=== PATIENT | female | born 1960 | race Caucasian/White ===

== ENCOUNTER → 2017-01-21 | Outpatient (CLI) | payer BC, OTHER ==
[~2017-01-21] VITALS: Ht 162.6 cm; Wt 69.9 kg
[~2017-01-21] MED LIST: BACLOFEN 10MG T10 MG PO; CELEXA 20 MG TA20 M1 PO; FISHOIL PO; GABAPENTIN PO; HYDROCODONE-AP1 EAC6 PO; IBUPROFEN 400400 M1 PO; INTRATHECAL MED; LISINOPRIL5 MG PO; MELATONIN1 MG PO; MULTIVITAMINS PO; NEURONTIN600 MG PO; OXYCODONE HCL5 M1 PO; OXYCODONE-ACET1 EACH PO; OXYCONTIN20 MG PO; PEPCID40 MG PO; PROBIOTIC1 EAC1 PO; VALIUM5 MG PO; VITAMIN D-32000 UNIT PO; VITCB500GO PO; ZANAFLEX2 M1 PO; ZOLOFT25 MG PO
[2017-01-21 13:00] VITALS: BP 177/107
== END ==
LOC: PAIN 12:23
DX: Z45.1 Encounter for adjustment and management of infusion pump (principal); M79.605 Pain in left leg; M79.604 Pain in right leg; N32.89 Other specified disorders of bladder; Z87.891 Personal history of nicotine dependence; Z98.890 Other specified postprocedural states

== ENCOUNTER → 2017-08-12 | Outpatient (CLI) | payer BC, OTHER ==
[~2017-08-12] VITALS: Ht 162.6 cm; Wt 66.2 kg
--- NOTE | ~2017-08-12 | HPC ---
[facility] [place] [address] PAIN MANAGEMENT CONSULTATION Name: JORDANA GERMAIN Shine Room #: REG NELIA Loc.#: [id number] Admission: 08/12/17 Attend Phys: Sukhdev Ny MD Discharge: Date of : 60 Report #: [id number] THIS REPORT FOR: //name// CC: Yonny Ny DATE OF SERVICE: 08/12/2017 Followup visit for refill and reprogram of intrathecal infusion pump. The patient returns to the pain clinic today for a refill of her intrathecal pump. 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 We tried at one point to taper her off of medication and we were unable to do so. She had a new pump placed last year and she is doing well. She has lost about 15-20 pounds willfully and is getting along pretty well. She scores her pain intensity as 0 and her spasticity control is excellent. PHYSICAL EXAMINATION: She is 5 feet 4 inches, blood pressure is 127/78, heart rate 68 and BMI is 25.0. She looks great. She moves from sitting to standing position, walks with a spastic gait. She has pain in the left lower quadrant, which is mildly tender. IMPRESSION: 1. Pain and spasticity secondary to an L1 burst fracture following a traumatic injury. 2. Management of intrathecal infusion pump. PROCEDURE: Reprogramming and refill of intrathecal pump. PROCEDURE: Skin was prepped with ChloraPrep. Skin anesthetized and a 22-gauge non-coring needle advanced in the intrathecal pump. Old medication was removed and discarded. There was 2 mL retrieved nearly what was expected. The pump was refilled with 20 mL of baclofen 500 mcg/mL and morphine 5 mg/mL. She is on very low dose. No adjustments were made in her dose, but I performed a reprogramming session to provide 0.35 mg of infumorph and 35 mg of baclofen intrathecally. Her JOSEP is now 74 months. Her low reservoir alarm date is 04/26/2018. We will carry her out at least 6 months after that she will call if necessary before April, but otherwise I will let it go out 10 months. <ELECTRONICALLY SIGNED> By: Sukhdev Ny MD 09/08/17 1640 [id number] Sukhdev Ny MD /nt
[2017-08-12 15:00] VITALS: BP 127/78
== END | disposition home or self-care (01) ==
LOC: PAIN 06:55
DX: Z45.1 Encounter for adjustment and management of infusion pump (principal); G80.1 Spastic diplegic cerebral palsy; Z87.828 Personal history of other (healed) physical injury and trauma; Z87.891 Personal history of nicotine dependence

== ENCOUNTER → 2017-11-18 | Outpatient (CLI) | payer BC, OTHER ==
[~2017-11-18] VITALS: Ht 162.6 cm; Wt 64.0 kg
--- NOTE | ~2017-11-18 | HPC ---
[facility] [place] [address] PAIN MANAGEMENT CONSULTATION Name: JORDANA GERMAIN Shine Room #: REG LUIS CARLOSDionicio Monterroso.#: [id number] Admission: 11/18/17 Attend Phys: Sukhdev Ny MD Discharge: Date of : 60 Report #: [id number] THIS REPORT FOR: //name// CC: SOCORRO Ny DATE OF SERVICE: 11/18/2017 Followup visit for management of intrathecal infusion pump due to spasticity from L1 burst fracture and recent worsening of right leg pain, weakness and radiculopathy. The patient is here today for me to evaluate her worsening leg pain, weakness. It began the day after she had an extremely physical and active day at work and at home. She moved dozens of bags of 40 pounds of mulch, did other lifting and caring activities and the following day noticed that her back and her leg pain were quite severe. Fortunately, over the course of the last 3 weeks, this has improved. She scores her pain today as 0. Her primary concern is weakness, which is worsening, has affected her gait. She is back to using a cane. She has used a cane in the past, but it made some good progress after losing weight and exercising. This has been a setback. She has an injury to the conus with her L1 burst fracture and this has affected primarily the nerves exiting and involving the right hip. She has weakness in hip flexion, leg extension and she has both plantar and dorsiflexion weakness, which is fairly profound on the right. The left leg is strong without symptoms. MEDICATIONS: Include only very occasion Valium for spasticity and she has a bottle of oxycodone at home, but has been months between taking single doses, only using it when the pain is excruciating. ALLERGIES: None. PHYSICAL EXAMINATION: A pleasant 56-year-old female. Blood pressure 138/84, heart rate 85, BMI is 24.2. She appears fit. Upper extremity is strong and she is in excellent shape of the waist. When she moves from sitting to standing position, she demonstrates weakness with moderate to severe level of the right lower extremity. Her gait is antalgic and she is a fall risk. Examination of the right leg reveals tenderness in the hip along the L5 . She has marked weakness with hip flexion. Leg extension is fair. Plantar and dorsiflexion are both markedly weak. She has a footdrop. Sensation is diminished in the L5 and S1 distribution to pinprick. Deep tendon reflexes are absent at knees and ankle. IMPRESSION: 1. Pain and spasticity related to L1 burst fracture. 2. Right leg weakness with significant radiculopathy including weakness and [facility] [address] [place] [address] PAIN MANAGEMENT CONSULTATION Name: JORDANA GERMAIN Room #: REG NELIA Tripp#: [id number] Admission: 11/18/17 Attend Phys: Sukhdev Ny MD Discharge: Date of : 60 Report #: [id number] pain. This has actually improved over the last 3 weeks following her extensive exercise. RECOMMENDATIONS: 1. She may be a candidate for an epidural injection. We also discussed diagnostic MRI. 2. Continue to remain active. If she develops more weakness, I would recommend an MRI. 3. Follow up in 3-4 weeks for pump refill. Pump is infusing baclofen and very small dose of morphine. Her doses are quite small. By: [id number] Sukhdev Ny MD /nt
[2017-11-18 09:55] VITALS: BP 138/84
== END ==
LOC: PAIN 05:35
DX: M54.16 Radiculopathy, lumbar region (principal); M79.661 Pain in right lower leg; R53.1 Weakness

== ENCOUNTER → 2018-04-25 | Outpatient (CLI) | payer BC, OTHER ==
[~2018-04-25] VITALS: Ht 162.6 cm; Wt 64.0 kg
--- NOTE | ~2018-04-25 | HPC ---
[facility] [address] [place] [address] PAIN MANAGEMENT CONSULTATION Name: MARITZA GERMAINARPITA Riojas Room #: REG Dionicio Loc.#: [id number] Admission: 04/25/18 Attend Phys: Sukhdev Ny MD Discharge: Date of : 60 Report #: [id number] THIS REPORT FOR: //name// CC: SOCORRO HOGAN Physician staff Sukhdev Ny DATE OF SERVICE: 04/25/2018 Followup visit for management of intrathecal infusion pump. The patient is here today for refill. I see her in 6- to 9-month intervals. I think 9 months is too long. She is beginning to notice that in the latter months, the spasticity control is not quite as good. She has baclofen and morphine in her pump. She is doing well. 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 She is active at home. She has kept herself very fit and looks great. She has required no additional medicines from our clinic for spasticity, depression or anxiety at this time. PHYSICAL EXAMINATION: This is a very pleasant, outgoing 57-year-old. Her blood pressure is 124/67, heart rate 64. She moves from sitting to standing position and has a mild spasticity to her gait. She has pain across her low back. She has some weakness in hip dorsiflexion on leg extension, plantar and dorsiflexion weakness bilaterally. This is more profound on the right. Left leg is strong for her and carries much of her weight. The foot drop is noted. IMPRESSION: 1. Chronic pain and spasticity related to L1 burst fracture. 2. Right leg weakness with radiculopathy. 3. Management of intrathecal infusion pump with refill and reprogramming session. PROCEDURE: Skin was prepped with ChloraPrep. Skin was anesthetized and a 22-gauge non-coring needle advanced in the pump. Old medication removed and discarded. Pump was refilled with baclofen and morphine solution and a reprogramming session performed. She was discharged with a daily dose of baclofen at 35 mcg and morphine at 0.35 mg per day. Plan to see her back in 6 months. <ELECTRONICALLY SIGNED> By: Sukhdev Ny MD 04/29/18 1312 [id number] [id number] Sukhdev Ny MD /nt
[2018-04-25 08:35] VITALS: BP 124/67
== END | disposition home or self-care (01) ==
LOC: PAIN 07:04
DX: Z45.1 Encounter for adjustment and management of infusion pump (principal); G89.29 Other chronic pain; M54.16 Radiculopathy, lumbar region; Z79.899 Other long term (current) drug therapy; Z87.891 Personal history of nicotine dependence

== ENCOUNTER → 2018-10-18 | Outpatient (CLI) | payer BC, OTHER ==
[~2018-10-18] VITALS: Ht 162.6 cm; Wt 64.2 kg
--- NOTE | ~2018-10-18 | HPC ---
[facility] [place] [place] [address] PAIN MANAGEMENT CONSULTATION Name: MARITZA GERMAINARPITA Riojas Room #: REG NELIA Loc.#: [id number] Admission: 10/18/18 ������������������ Attend Phys: Sukhdev Ny MD Discharge: ������������������ Date of : 60 Report #: [id number] THIS REPORT FOR: //name// CC: SOCORRO HOGAN Physician staff Sukhdev Ny DATE OF SERVICE: 10/18/2018 Followup visit for management of spasticity with intrathecal infusion pump. The patient returns to the clinic today for refill, doing well on low-dose baclofen and morphine. Her daily dose of baclofen is 34 mcg. Her daily dose of Infumorph is 0.35 mg. We tried to taper this medication and put her on oral, but once we got past this very low rate, she found that her spasticity increased with a vengeance. She has done pretty well, still has to use a cane, however. She is having some pain ongoing in her right leg, which is a bit worse than it has been in the past. PHYSICAL EXAMINATION: Her blood pressure is 134/78, heart rate 68, respirations 16. She has a spastic gait and is able to ambulate with a fairly stable appearing spastic gait today. She is fit with a BMI of 24.3. Mild spasticity is noted in lower extremities. IMPRESSION: 1. Spasticity-related spinal cord injury. 2. Management of intrathecal infusion pump. PROCEDURE: Refill reprogramming session. Skin was prepped with ChloraPrep. A 22-gauge non-coring needle advanced into the pump on the first attempt. Old medication was removed and discarded per protocol. The pump was then refilled with a combination of baclofen and morphine and a reprogramming session performed. Daily dose will be unchanged. Next refill is scheduled for 06/24/2019. We have been doing it at about 6-month intervals. She is very cost conscious. Pump refills basically take up her entire deductible. We talked about disability. She has really pushed herself with a spinal cord injury. She is now at a point where I think that work is getting more demanding for her. She is tired. She is unable to do much more outside of work on many days. I told that we will discuss disability further. She is concerned about health insurance. She is also concerned about life outside of work since she has always been very driven. Some time spent in counseling. [facility] [address] [place] [address] PAIN MANAGEMENT CONSULTATION Name: JORDANA GERMAIN Room #: REG NELIA Tripp#: [id number] Admission: 10/18/18 ������������������ Attend Phys: Sukhdev Ny MD Discharge: ������������������ Date of : 60 Report #: [id number] Followup visit is planned in 6-8 months. ��������������������������������������������� ���������������������������������������� By: ��������������������������������������������� 1329 0350 Sukhdev Ny MD /nt
[2018-10-18 10:28] VITALS: BP 134/78
== END | disposition home or self-care (01) ==
LOC: PAIN 06:57
DX: Z45.1 Encounter for adjustment and management of infusion pump (principal); G80.1 Spastic diplegic cerebral palsy; Z79.891 Long term (current) use of opiate analgesic; Z87.891 Personal history of nicotine dependence

== ENCOUNTER → 2019-06-22 | Outpatient (CLI) | payer BC, OTHER ==
[~2019-06-22] VITALS: Ht 162.6 cm; Wt 69.1 kg
[~2019-06-22] MED LIST changes: +NORVASC2.5 MG PO
--- NOTE | ~2019-06-22 | HPC ---
[facility] [address] [place] [place] [address] PAIN MANAGEMENT CONSULTATION Name: JORDANA GERMAIN Room #: REG Dionicio Monterroso.#: [id number] Admission: 06/22/19 Attend Phys: Sukhdev Ny MD Discharge: Date of : 60 Report #: [id number] THIS REPORT FOR: //name// CC: TIFFANY HOGAN Physician staff Sukhdev Ny DATE OF SERVICE: 06/22/2019 Followup visit for management of intrathecal infusion pump for spasticity. The patient returns to pain clinic today for refill of her intrathecal infusion pump. Her last refill was in 10/2018. She is on a combination of baclofen at a low dose of 34 mcg per day and a dose of intrathecal morphine at 35 mcg per day. We tried very diligently to very slowly taper her hoping that she would no longer need her intrathecal infusion pump. It took about a year, but when we got to the point of actually getting her off of medication, her pain dramatically increased as well as her spasticity. She has now decided that she will remain on intrathecal medications indefinitely. Her next pump change will be in ____. Her low dose infusion is working well. 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 Medications were reviewed and reconciled. There are no unexpected changes. PQRS: 1. No osteoarthritis. 2. BMI 24.3. She is in good condition and works to keep herself in shape despite her spasticity. 3. Vital signs: 134/78, heart rate 68, respirations 16, O2 sat 99. 4. Pain 0. 5. No falls, but she does use a cane to mosley off falls if she overdoes and has pain of a radicular nature, which comes on occasionally. She had a similar episode 3 weeks ago. 6. No blood thinners. 7. No history of hypertension. 8. No opioid agreement. 9. She has completed an opioid risk tool and is at low risk for addiction. 10. She denies use of tobacco, recreational drugs, marijuana. She does drink alcohol socially once or twice a day, but does not drink to excess. PHYSICAL EXAMINATION: As noted above. She has minimal spasticity today. IMPRESSION: Spasticity related to spinal cord injury. [address] [address] PAIN MANAGEMENT CONSULTATION Name: JORDANA GERMAIN Shine Room #: REG NELIA Tripp#: [id number] Admission: 06/22/19 Attend Phys: Sukhdev Ny MD Discharge: Date of : 60 Report #: [id number] PLAN: Refill and reprogramming intrathecal infusion pump. Skin was prepped with ChloraPrep. Skin anesthetized and 22-gauge non-coring needle advanced in the pump. Old medication removed and discarded per protocol. Pump was then refilled with a combination of Infumorph and baclofen. Reprogramming session provides 34 mcg of baclofen and 34 mcg of fentanyl per day. Her next refill is scheduled for 6 months. No oral medications were ordered for her today. No changes in therapy planned. By: 1323 [id number] Sukhdev Ny MD /nt
[2019-06-22 09:38] VITALS: BP 120/88
--- NOTE | 2019-06-22 09:47 | NUR ---
Pain Clinic Assessment: 1. History of Osteoarthritis: BACK HANDS HIPS History of Rheumatoid Arthritis: Not Applicable 2. Height: 5 ft. 4 in. 162.6 cm. Weight: 152.4 lb. oz. 69.128 kg. Patient's BMI: 26.1 3. Vital Signs: BP: 120/88 Pulse: 76 Resp: 16 Temp: 02 Sat: 99 ECG Mon: 4. Pain Intensity: 0 5. Fall Risk: Dizziness: N Needs help standing or walking: N Fallen in the last 3 months: N Fall risk comments: HAIVNG TO USE CANE SINCE PAIN IN RIGHT LEG CAME ON 3 WEEKS AGO 6. Patient on Blood Thinner: None 7. History of Hypertension: N 8. Opioid Therapy greater than 6 weeks: N Opiate Contract Signed: 9. Risk Assessment Tool Provided: LOW RISK 0/3 10. Functional Assessment Tool: 0/70 11. Recreational Drug Use: Never Drug Type: Tobacco Use: Former Smoker Tobacco Type: Amount or Packs/day: How Many Years: Alcohol Use: Yes Frequency: Daily Quant: 1
== END | disposition home or self-care (01) ==
LOC: PAIN 06:47
DX: Z45.1 Encounter for adjustment and management of infusion pump (principal); R25.2 Cramp and spasm; G89.29 Other chronic pain; Z98.890 Other specified postprocedural states; Z87.891 Personal history of nicotine dependence; Z79.899 Other long term (current) drug therapy

== ENCOUNTER → 2020-02-26 | Outpatient (CLI) | payer OTHER ==
[~2020-02-26] VITALS: Ht 162.6 cm; Wt 67.6 kg
[~2020-02-26] MED LIST changes: +HYDROCODON-ACE1 EAC5 PO
--- NOTE | ~2020-02-26 | HPC ---
[facility] [place] [address] PAIN MANAGEMENT CONSULTATION Name: JORDANA GERMAIN Room #: REG NELIA Loc.#: [id number] Admission: 02/26/20 Attend Phys: Sukhdev Ny MD Discharge: Date of : 60 Report #: [id number] THIS REPORT FOR: cc: SOCORRO HOGAN MD Physician not on staff Sukhdev Ny MD ~ CC: TIFFANY HOGAN Physician staff Sukhdev Ny DATE OF SERVICE: 03/07/2020 Followup visit for spasticity related to spinal cord injury. HISTORY: The patient returns today for refill of her intrathecal infusion pump. She was last seen in June. Her pump is infusing low dose baclofen and morphine. Both have been helpful in providing pain relief and control of spasticity. By adding Infumorph, we have been able to keep her at a very low dose of baclofen allowing for longer refills. She has always complained about the high cost of refilling the intrathecal infusion pump. Medications and refills apparently are part of her high deductible. Her current infusion is Infumorph 0.3 mg a day, baclofen 34 mcg a day. At this low dose, we thought at one time we might be able to taper her off, so she would not have to worry about managing this pump. We did it very steadily and slowly getting to the lowest possible effective dose, but spasticity returned with a vengeance as we got to the lower levels below about 30 mcg of baclofen a day and we have been unable to take her off and place her on oral medicines. She has now realized that this may be lifelong therapy to treat her spinal cord injury and spasticity. For that, we should be grateful. It provides a good role and allows her to remain functional and active. PHYSICAL EXAMINATION: She is 5 feet 4 inches. MEDICATIONS: Her list of medications are amlodipine 2.5 mg daily and the intrathecal medications. ALLERGIES: None. PAST MEDICAL HISTORY: Significant for the injury. Otherwise, she has been in good health other than hypertension. PHYSICAL EXAMINATION: GENERAL: She is a very claire pleasant, outgoing 59-year-old. [facility] [address] [place] [address] PAIN MANAGEMENT CONSULTATION Name: JESSAJORDANA L Room #: REG [facility] [id number] Admission: 02/26/20 Attend Phys: Sukhdev Ny MD Discharge: Date of : 60 Report #: [id number] VITAL SIGNS: Blood pressure is 120/74, heart rate 64, respirations 16, O2 sat 97. She is 5 feet 4 inches, 149 pounds, BMI is 25.6. She moves independently from sitting to standing. Her gait is mildly antalgic and spastic, but the medication does provide some control. She has tenderness across her low back, particularly in the region where she had a burst fracture of L1. She has weakness in hip dorsiflexion on leg extension. Plantar and dorsiflexion are also weak bilaterally. This is worse on the right than the left. Foot drop is noted. IMPRESSION: 1. Chronic pain and spasticity related to L1 burst fracture and spinal cord injury. 2. Weakness secondary to radiculopathy. 3. Management of intrathecal infusion pump with refill and reprogramming. PROCEDURE: Skin was prepped with ChloraPrep. A 22-gauge non-coring needle advanced in pump. Old medication removed and discarded per protocol. Pump was then refilled with a combination of Infumorph and baclofen. Reprogramming session was performed without change. Her next refill is scheduled for 6-9 months. She has enough medicine actually to last her until 11/09/2020. Her JOSEP is 44 months. That will be the end of her second pump. She has now been on this therapy for over 8 years. Followup visit planned in 6-9 months. As long as her medication remains effective and given her high cost of management, I will allow her to continue the infusion beyond the usual 3-month refills. By: [id number] Sukhdev Ny MD /nt
[2020-02-26 10:23] VITALS: BP 120/74
--- NOTE | 2020-02-26 10:52 | NUR ---
Pain Clinic Assessment: 1. History of Osteoarthritis: BACK HANDS HIPS History of Rheumatoid Arthritis: Not Applicable 2. Height: 5 ft. 4 in. 162.6 cm. Weight: 149.0 lb. oz. 67.586 kg. Patient's BMI: 25.6 3. Vital Signs: BP: 120/74 Pulse: 64 Resp: 16 Temp: 02 Sat: 97 ECG Mon: 4. Pain Intensity: 0 5. Fall Risk: Dizziness: N Needs help standing or walking: N Fallen in the last 3 months: N Fall risk comments: HAIVNG TO USE CANE SINCE PAIN IN RIGHT LEG CAME ON 3 WEEKS AGO 6. Patient on Blood Thinner: None 7. History of Hypertension: N 8. Opioid Therapy greater than 6 weeks: N Opiate Contract Signed: 9. Risk Assessment Tool Provided: LOW RISK 0/3 10. Functional Assessment Tool: 11. Recreational Drug Use: Never Drug Type: Tobacco Use: Former Smoker Tobacco Type: Cigarettes Amount or Packs/day: 1/2 How Many Years: 20 Alcohol Use: Yes Frequency: Daily Quant: 1/day
== END | disposition home or self-care (01) ==
LOC: PAIN 07:01
PROVIDERS: ATTEND Anesthesiology Pain Medicine
DX: G89.29 Other chronic pain (principal); M54.16 Radiculopathy, lumbar region; R53.1 Weakness; Z79.899 Other long term (current) drug therapy; Z88.8 Allergy status to other drugs, medicaments and biological substances

== ENCOUNTER → 2020-08-08 | Outpatient (CLI) | payer OTHER ==
[~2020-08-08] VITALS: Ht 162.6 cm; Wt 67.8 kg
[~2020-08-08] MED LIST changes: +VALIUM2 MG PO
[2020-08-08 09:48] VITALS: BP 126/81
--- NOTE | 2020-08-08 09:53 | NUR ---
Pain Clinic Assessment: 1. History of Osteoarthritis: BACK HANDS HIPS History of Rheumatoid Arthritis: Not Applicable 2. Height: 5 ft. 4 in. 162.6 cm. Weight: 149.4 lb. oz. 67.767 kg. Patient's BMI: 25.6 3. Vital Signs: BP: 126/81 Pulse: 73 Resp: 16 Temp: 02 Sat: 98 ECG Mon: 4. Pain Intensity: 0 5. Fall Risk: Dizziness: N Needs help standing or walking: N Fallen in the last 3 months: N Fall risk comments: HAIVNG TO USE CANE SINCE PAIN IN RIGHT LEG CAME ON 3 WEEKS AGO 6. Patient on Blood Thinner: None 7. History of Hypertension: N 8. Opioid Therapy greater than 6 weeks: Y Opiate Contract Signed: 9. Risk Assessment Tool Provided: LOW RISK 0/3 10. Functional Assessment Tool: 11. Recreational Drug Use: Never Drug Type: Tobacco Use: Former Smoker Tobacco Type: Amount or Packs/day: How Many Years: Alcohol Use: Yes Frequency: Special Occasions Quant: 1
== END ==
LOC: PAIN 07:00
PROVIDERS: ATTEND Anesthesiology Pain Medicine
DX: G89.29 Other chronic pain (principal); R25.2 Cramp and spasm; F11.20 Opioid dependence, uncomplicated

== ENCOUNTER → 2020-11-07 | Outpatient (CLI) | payer OTHER ==
[~2020-11-07] VITALS: Ht 162.6 cm; Wt 66.8 kg
[~2020-11-07] MED LIST changes: +TIZANIDINE HCL2 M1 PO
[2020-11-07 09:21] VITALS: BP 131/82
--- NOTE | 2020-11-07 09:30 | NUR ---
Pain Clinic Assessment: 1. History of Osteoarthritis: BACK HANDS HIPS History of Rheumatoid Arthritis: Not Applicable 2. Height: 5 ft. 4 in. 162.6 cm. Weight: 147.2 lb. oz. 66.769 kg. Patient's BMI: 25.3 3. Vital Signs: BP: 131/82 Pulse: 80 Resp: 16 Temp: 02 Sat: 100 ECG Mon: 4. Pain Intensity: 0 5. Fall Risk: Dizziness: N Needs help standing or walking: N Fallen in the last 3 months: N Fall risk comments: HAIVNG TO USE CANE SINCE PAIN IN RIGHT LEG CAME ON 3 WEEKS AGO 6. Patient on Blood Thinner: None 7. History of Hypertension: N 8. Opioid Therapy greater than 6 weeks: Y Opiate Contract Signed: 9. Risk Assessment Tool Provided: LOW RISK 0/3 10. Functional Assessment Tool: 11. Recreational Drug Use: Never Drug Type: Tobacco Use: Former Smoker Tobacco Type: Amount or Packs/day: How Many Years: Alcohol Use: Yes Frequency: Quant:
== END | disposition home or self-care (01) ==
LOC: PAIN 07:06
PROVIDERS: ATTEND Anesthesiology Pain Medicine
DX: Z45.1 Encounter for adjustment and management of infusion pump (principal); R25.2 Cramp and spasm; M19.90 Unspecified osteoarthritis, unspecified site; Z98.890 Other specified postprocedural states; Z79.899 Other long term (current) drug therapy; Z79.891 Long term (current) use of opiate analgesic; Z87.891 Personal history of nicotine dependence

== ENCOUNTER → 2021-06-23 | Outpatient (CLI) | payer OTHER ==
[~2021-06-23] VITALS: Ht 162.6 cm; Wt 67.3 kg
[~2021-06-23] MED LIST changes: +DIAZEPAM 5 MG5 MG PO
[2021-06-23 15:03] VITALS: BP 143/79
--- NOTE | 2021-06-23 15:21 | NUR ---
Pain Clinic Assessment: 1. History of Osteoarthritis: BACK HANDS HIPS History of Rheumatoid Arthritis: Not Applicable 2. Height: 5 ft. 4 in. 162.6 cm. Weight: 148.4 lb. oz. 67.314 kg. Patient's BMI: 25.5 3. Vital Signs: BP: 143/79 Pulse: 72 Resp: 14 Temp: 02 Sat: 100 ECG Mon: 4. Pain Intensity: 0 (6 TO 7 WITH SPASMS) 5. Fall Risk: Dizziness: N Needs help standing or walking: N Fallen in the last 3 months: N Fall risk comments: HAIVNG TO USE CANE SINCE PAIN IN RIGHT LEG CAME ON 3 WEEKS AGO 6. Patient on Blood Thinner: None 7. History of Hypertension: N 8. Opioid Therapy greater than 6 weeks: Y Opiate Contract Signed: 9. Risk Assessment Tool Provided: LOW RISK 0/3 10. Functional Assessment Tool: 11. Recreational Drug Use: Never Drug Type: Tobacco Use: Former Smoker Tobacco Type: Amount or Packs/day: How Many Years: Alcohol Use: Yes Frequency: Daily Quant: 1 OR 2 BEER
== END | disposition home or self-care (01) ==
LOC: PAIN 07:37
PROVIDERS: ATTEND Anesthesiology Pain Medicine
DX: Z45.1 Encounter for adjustment and management of infusion pump (principal); G89.29 Other chronic pain; R25.2 Cramp and spasm; M19.90 Unspecified osteoarthritis, unspecified site; Z98.890 Other specified postprocedural states; Z79.899 Other long term (current) drug therapy; Z87.891 Personal history of nicotine dependence